=== PATIENT | female | born 1990 | race Caucasian/White ===

== ENCOUNTER 2019-03-11 10:11 | Inpatient (IN) | payer OTHER ==
[2019-03-11] MEDS ORDERED: Butorphanol Tartrate 1 MG/ML VIAL SLOW IVP PRN (10:22)
[2019-03-11] MEDS ORDERED: Ondansetron PF 4 MG/2 ML Vial IVP PRN ×3 (10:22→15:08)
[2019-03-11] MEDS ORDERED: CEFAZOLIN 2 GM in Premix Bag 1 BAG IVPB SCH (10:22)
[2019-03-11] MEDS ORDERED: Promethazine HCl 25 MG/ML VIAL IM PRN ×3 (10:22→15:08)
[2019-03-11] MEDS ORDERED: Bicitra 30 ML UDCUP PO SCH (10:22)
[2019-03-11] MEDS ORDERED: hydrALAZINE 20 MG/ML VIAL SLOW IVP PRN ×2 (10:22→15:08)
[2019-03-11] MEDS: Lactated Ringer's 1,000 ML IV SCH ×3 (10:45→18:09)
[2019-03-11 10:59] LABS: Hemoglobin 13.2 g/dL (12.0-16.0); Mean Corpuscular HGB CONC 33.3 g/dL (32.0-36.0); Mean Corpuscular Hemoglobin 28.8 pg (27.0-31.0); Mean Corpuscular Volume 86.7 fL (78.0-98.0); Mean Platelet Volume 8.5 fL (7.4-10.4); Platelet Count 224 thou/uL (130-400); RBC Distribution Width 13.4 % (11.5-14.5); Red Blood Cell (RBC) Count 4.59 mill/uL (4.20-5.40); White Blood Cell (WBC) Count 10.5 thou/uL (4.8-10.8)
[2019-03-11 11:00] VITALS: BMI 31.8
[2019-03-11 11:39] LABS: Syphilis Antibody Nonreactive (Nonreactive); Syphilis Antibody Index 0.04 S/CO (<1.00 Non-Reactive)
[2019-03-11 11:45] LABS: HBSAg Index 0.33 S/CO (0-0.99); Hep B Surf Ag Non-Reactive S/CO (NonReactive)
[2019-03-11] MEDS ORDERED: MORPHINE 5 MG/10 ML PF VIAL ONE (11:56)
[2019-03-11] MEDS ORDERED: Fentanyl 100 MCG/2 ML VIAL ONE (11:56)
[2019-03-11] MEDS ORDERED: Oxytocin 10 UNITS/ML VIAL ONE (11:57)
[2019-03-11] MEDS ORDERED: Phenylephrine HCL 10 MG/ML VIAL ONE (11:57)
[2019-03-11] MEDS ORDERED: ePHEDrine/0.9% NaCl/PF SYRINGE 50 mg/10 ml ONE (11:57)
[2019-03-11] MEDS ORDERED: Ondansetron PF 4 MG/2 ML Vial ONE ×2 (11:57→16:57)
[2019-03-11] MEDS ORDERED: Ketorolac Tromethamine 30 MG/ML VIAL ONE ×2 (11:57→16:57)
[2019-03-11] MEDS ORDERED: Dexamethasone 4 mg/ml Vial ONE (11:57)
[2019-03-11] MEDS ORDERED: Ketorolac Tromethamine 30 MG/ML VIAL IVP PRN (13:31)
[2019-03-11] MEDS ORDERED: diphenhydrAMINE 50 MG/ML VIAL IVP PRN (13:31)
[2019-03-11] MEDS ORDERED: HYDROmorphone 2 MG/ML VIAL SLOW IVP PRN (13:31)
[2019-03-11] MEDS ORDERED: Meperidine HCl/PF 25 MG/ML VIAL SLOW IVP PRN (13:31)
[2019-03-11] MEDS ORDERED: Naloxone HCl 0.4 mg/ml Vial IV PRN (13:31)
[2019-03-11] MEDS ORDERED: Promethazine HCl 25 MG SUPP PR PRN (13:31)
[2019-03-11] MEDS ORDERED: Ondansetron HCl/PF 4 MG/2 ML Vial IVP PRN (13:31)
[2019-03-11] MEDS ORDERED: Naloxone HCl 0.4 mg/ml Vial IVP PRN ×2 (13:31)
[2019-03-11] MEDS ORDERED: L&D-Morphine 4 MG/ML VIAL SLOW IVP PRN (13:31)
[2019-03-11] MEDS ORDERED: Communication Order-Pharmacy FS SCH (13:45)
[2019-03-11] MEDS ORDERED: Ketorolac Tromethamine 30 MG/ML VIAL IVP SCH (13:45)
[2019-03-11] MEDS ORDERED: Bisacodyl 10 MG SUPP PR PRN (15:08)
[2019-03-11] MEDS ORDERED: NS / Oxytocin 40 units/1000ml 1,000 ML IV SCH (15:08)
[2019-03-11] MEDS ORDERED: Lanolin Ointment 7 GM TUBE TOP PRN (15:08)
[2019-03-11] MEDS ORDERED: Meperidine HCl/PF 25 MG/ML VIAL IM PRN (15:08)
[2019-03-11] MEDS ORDERED: diphenhydrAMINE 25 MG CAP PO PRN (15:08)
--- NOTE | 2019-03-11 15:46 | PDOC.OPDEL ---
OB Operative/Delivery Note Delivery Dr/Surgeon: Dr. Rios Assist: Dr. Villanueva Pre-Delivery Diagnosis: scheduled section Procedure/Post Delivery Dx: repeat low transverse CS Weeks gestation: 39 (39w1d) Anesthesia: spinal - Findings A Sex: male - 1 min: 8 - 5 min: 9 - Additional Findings/Plan Placenta delivered: manual removal findings: low transverse hysterotomy without extension Estimated blood loss: 600 mL Compilations/Other Findings: Preoperative Diagnosis: 1)Term intrauterine 2)Previous Postoperative Diagnosis: 1)Term intrauterine , delivered 2)Previous Anesthesia: spinal Indications: The patient is a 28 year old female at 39.1 weeks gestation who presents for a repeat scheduled . Procedure in Detail: After risks, benefits, and alternatives were explained to the patient, she gave informed consent. Pre-operative antibiotics included Cefazolin 2 gram IV. The patient was taken to the operating room and spinal anesthesia was initiated. She was placed in the supine position with a left tilt and prepped and draped in usual sterile fashion. A Pfannenstiel incision was made with a scalpel and carried down to the level of the fascia which was sharply nicked. The fascial cut was extended bilaterally with Verde scissors. The inferior and superior edges of the cut fascial edges were elevated with Sharyn clamps and the underlying rectus muscles were sharply and bluntly dissected free. The recti were divided digitally and retracted manually. The peritoneum was entered bluntly and retracted manually. Bladder blade was placed. Bladder flap was created with Metzenbaum scissors. An adhesion was lysed from the lower uterine segment using bovie and metzembaum scissors. A low transverse score was made with the scalpel and the uterus was entered in the midline bluntly. Clear fluid was seen. The hysterotomy was extended manually in a cephalocaudal fashion. The was noted to be vertex and was easily delivered by fundal pressure. Mouth and nares were bulb suctioned. Cord clamped and cut and grossly normal male was handed to waiting nurse. Cord blood was obtained. Placenta was manually extracted, found to be intact with 3 vessel cord and discarded. The uterus was externalized and the endometrium was curetted with a dry lap. The bladder blade was replaced and the uterus was closed with a running locking 0-Vicryl followed by a few figure- of-eights with 0-vicryl for hemostasis. Following this hemostasis was noted. The abdomen was irrigated with saline and suctioned free of clots. The uterus was internalized and the hysterotomy was again noted to be hemostatic. The peritoneum was closed with running non-locking 3-0 vicryl suture. The rectus were examined and a few bleeders were noted, so torin was placed for hemostasis. The fascia was closed with a running non-locking 0-PDS suture. The subcutaneous tissue was irrigated and there were no bleeders and was approximated with 3-0 vicryl in simple interrupted fasion. The skin was approximated with michael and a pressure dressing was placed. All counts were correct. The patient tolerated the procedure well and was taken to the recovery room in stable condition. Time of Delivery: 1241 on 03/11/19 Estimated Blood Loss: 600 ml Complications: None Specimens: Cord blood sent to lab for blood type Findings: Grossly normal male with apgars of 8 and 9 at 1 and 5 minutes respectively. Grossly normal placenta with 3 vessel cord discarded. Drains: Mora to gravity draining clear urine Post delivery plan: routine recovery
[2019-03-11] MEDS: Simethicone Chewable 80 MG TAB PO PRN (16:50)
[2019-03-11] MEDS ORDERED: Dexamethasone 20 MG/5 ML VIAL ONE (16:57)
[2019-03-11] MEDS ORDERED: ePHEDrine 50 MG/ML VIAL ONE (16:57)
[2019-03-11] MEDS: Docusate Calcium (SURFAK) 240 MG CAP PO SCH (22:09)
[2019-03-12] MEDS ORDERED: Butorphanol Tartrate 1 MG/ML VIAL SLOW IVP PRN (01:45)
[2019-03-12 05:50] LABS: Hemoglobin 11.8 g/dL (12.0-16.0); Mean Corpuscular HGB CONC 34.2 g/dL (32.0-36.0); Mean Corpuscular Hemoglobin 29.9 pg (27.0-31.0); Mean Corpuscular Volume 87.6 fL (78.0-98.0); Mean Platelet Volume 8.8 fL (7.4-10.4); Platelet Count 199 thou/uL (130-400); RBC Distribution Width 13.3 % (11.5-14.5); Red Blood Cell (RBC) Count 3.93 mill/uL (4.20-5.40); White Blood Cell (WBC) Count 12.1 thou/uL (4.8-10.8)
[2019-03-12] MEDS: Docusate Calcium (SURFAK) 240 MG CAP PO SCH ×2 (09:38→21:13)
[2019-03-12] MEDS: Prenatal Vitamin 1 TAB PO SCH (09:38)
[2019-03-12] MEDS: HYDROcodone/Acetaminophen 5/325 mg Tablet PO PRN ×3 (09:38→19:45)
[2019-03-12] MEDS: Simethicone Chewable 80 MG TAB PO PRN ×2 (09:38→21:13)
[2019-03-12] MEDS: Ibuprofen 800 MG TAB PO SCH ×2 (14:07→21:13)
[2019-03-12] MEDS ORDERED: Adacel (T-DAP) 0.5 ML SYRINGE IM ONE (15:08)
[2019-03-13] MEDS: HYDROcodone/Acetaminophen 5/325 mg Tablet PO PRN ×3 (00:01→13:24)
[2019-03-13] MEDS: Ibuprofen 800 MG TAB PO SCH ×3 (05:48→21:40)
[2019-03-13] MEDS: Prenatal Vitamin 1 TAB PO SCH (09:41)
[2019-03-13] MEDS: Docusate Calcium (SURFAK) 240 MG CAP PO SCH ×2 (09:41→21:40)
[2019-03-13] MEDS: Simethicone Chewable 80 MG TAB PO PRN (21:41)
[2019-03-14] MEDS: Ibuprofen 800 MG TAB PO SCH (05:05)
[2019-03-14 07:57] VITALS: BP 118/68; TEMP 97.9
[2019-03-14] MEDS: Prenatal Vitamin 1 TAB PO SCH (09:15)
[2019-03-14] MEDS: Docusate Calcium (SURFAK) 240 MG CAP PO SCH (09:15)
[2019-03-14] MEDS ORDERED: Adacel (T-DAP) 0.5 ML SYRINGE IM ONE (09:45)
== END 2019-03-14 10:15 | disposition home or self-care (01) | DRG 788 ==
LOC: L&D 10:11 → 3SW 15:25
PROVIDERS: ADMIT Family Medicine; ATTEND Family Medicine
PROC: 10D00Z1 Extraction of Products of Conception, Low, Open Approach (ICD-10-PCS; principal; 2019-03-11)
DX: O34.211 Maternal care for low transverse scar from previous cesarean delivery (principal); Z3A.39 39 weeks gestation of pregnancy; Z37.0 Single live birth
CPT/HCPCS: 36415; 51702; 85027; 86780; 86850; 86900; 86901; 87340; 90715; J0690; J1100; J1885; J2274; J2370; J2405; J2590; J3010; J3490